=== PATIENT | female | born 1940 | race Caucasian/White ===

== ENCOUNTER 2020-08-06 11:17 | Observation (INO) | payer OTHER ==
[~2020-08-06] VITALS: Ht 147.3 cm; Wt 58.1 kg
[2020-08-06 11:24] VITALS: Ht 147.3 cm; Wt 58.1 kg
[2020-08-06 14:01] LABS: BASOPHIL % 0.2 % (0-2); PLATELET COUNT 210 x10^3mcL (130-400); RED CELL DISTRIBUTION WIDTH 13.3 % (11.5-14.5)
[2020-08-06 15:17] LABS: CALCIUM 8.6 mg/dL (8.5-10.1); CARBON DIOXIDE 29.5 mmol/L (21-32); CHLORIDE SERUM 105 mmol/L (98-107); CREATININE SERUM 0.6 mg/dL (0.6-1.0); GLUCOSE SERUM 106 mg/dL (74-106); POTASSIUM SERUM 3.7 mmol/L (3.5-5.1); SODIUM SERUM 141 mmol/L (136-145)
[2020-08-06 15:22] LABS: ALBUMIN 3.5 g/dL (3.4-5.0); ALKALINE PHOSPHATASE 62 U/L (46-116); ALT/SGPT 22 U/L (14-59); AST/SGOT 21 U/L (15-37); BILIRUBIN TOTAL 0.4 mg/dL (0.20-1.00); TOTAL PROTEIN, SERUM 6.5 g/dL (6.4-8.2)
[2020-08-06 16:08] VITALS: BP 148/70
[2020-08-06 16:56] VITALS: BP 148/70
[2020-08-06 20:03] VITALS: BP 149/75
[2020-08-07 05:42] VITALS: BP 141/69
[2020-08-07 06:53] LABS: BASOPHIL % 0.3 % (0-2); PLATELET COUNT 198 x10^3mcL (130-400); RED CELL DISTRIBUTION WIDTH 13.3 % (11.5-14.5)
[2020-08-07 07:19] LABS: ALKALINE PHOSPHATASE 60 U/L (46-116); ALT/SGPT 25 U/L (14-59); AST/SGOT 17 U/L (15-37); BILIRUBIN TOTAL 0.87 mg/dL (0.20-1.00); CALCIUM 9.1 mg/dL (8.5-10.1); CARBON DIOXIDE 30.4 mmol/L (21-32); CHLORIDE SERUM 104 mmol/L (98-107); CHOLESTEROL 197 mg/dL (<200); CREATININE SERUM 0.7 mg/dL (0.6-1.0); GLUCOSE SERUM 128 mg/dL (74-106); LIPASE 47 IU/L (73-393); MAGNESIUM 2.3 mg/dL (1.8-2.4); PHOSPHOROUS 4.1 mg/dL (2.5-4.9); POTASSIUM SERUM 5.1 mmol/L (3.5-5.1); SODIUM SERUM 141 mmol/L (136-145); TOTAL PROTEIN, SERUM 6.5 g/dL (6.4-8.2); TRIGLYCERIDES 71 mg/dL (<150)
[2020-08-07 07:25] LABS: ALBUMIN 3.2 g/dL (3.4-5.0); CHOLESTEROL/HDL RATIO 2.7; HDL CHOLESTEROL 74 mg/dL (40-60)
[2020-08-07 08:39] VITALS: BP 172/79
[2020-08-07] MEDS ORDERED: COL100 PO (09:27)
[2020-08-07] MEDS ORDERED: ACETAMINOPHEN-H1 TA1 PO (09:27)
[2020-08-07 13:08] VITALS: BP 132/70
== END 2020-08-07 16:02 | disposition home or self-care (01) ==
LOC: ED 11:17 → DU 13:45
PROVIDERS: Emergency Medicine; ADMIT Hospitalist; ATTEND Hospitalist
DX: S22.41XA Multiple fractures of ribs, right side, initial encounter for closed fracture (principal); R07.2 Precordial pain; F41.9 Anxiety disorder, unspecified; M81.0 Age-related osteoporosis without current pathological fracture; I10 Essential (primary) hypertension; E78.5 Hyperlipidemia, unspecified; X58.XXXA Exposure to other specified factors, initial encounter; Y93.89 Activity, other specified; Y92.89 Other specified places as the place of occurrence of the external cause; Y99.8 Other external cause status; Z85.3 Personal history of malignant neoplasm of breast
CPT/HCPCS: G0378; J2270; J2405